=== PATIENT | female | born 1995 | race Caucasian/White ===

== ENCOUNTER 2018-10-07 10:04 | Emergency (ER) | payer OTHER ==
[~2018-10-07] VITALS: Ht 152.4 cm; Wt 60.6 kg
[~2018-10-07 10:04] MED LIST: NAPR-985 PO; NITR-58 PO
[2018-10-07 10:08] VITALS: Ht 152.4 cm; Wt 60.6 kg
[2018-10-07] MEDS ORDERED: LORAZEPAM 1 MG TAB PO ONE (11:00)
--- NOTE | 2018-10-07 11:33 | ERD ---
ER Documentation Chief Complaint Chief Complaint SHOULDER PAIN, LEFT EYE PAIN X3 MONTHS HPI 23-year-old female who is here with multiple complaints. She is complaining of having left-sided shoulder pain for about 1 week. She denies any injury or trauma. No numbness or tingling however she does states she has occasional paresthesias in her lips and also notices that she has occasional twitching of her left eye. She also states she has had a week of dysuria and increased urinary frequency. No hematuria. No nausea or vomiting. Does not think she is . ROS All systems reviewed and are negative except as per history of present illness. Medications Home Meds Active Scripts Naproxen* (Naprosyn*) 500 Mg Tablet, 500 MG PO BID PRN for PAIN AND/OR INFLAMMATION, #30 TAB Prov:KURT MACIEL PA-C 10/07/18 Nitrofurantoin Monohyd Macrocr* (Macrobid*) 100 Mg Capsr, 100 MG PO BID for 7 Days, CAP Prov:KURT MACIEL PA-C 10/07/18 Allergies Allergies: Coded Allergies: No Known Allergy (Unverified , 10/07/18) PMhx/Soc Medical and Surgical Hx: pt denies Surgical Hx Hx Miscellaneous Medical Probl: Yes (HX misccariage) Hx Alcohol Use: No Hx Substance Use: No Hx Tobacco Use: No Smoking Status: Never smoker FmHx Family History: No diabetes Physical Exam Vitals Vital Signs Date Temp Pulse Resp B/P (MAP) Pulse Ox O2 O2 Flow FiO2 Time Delivery Rate 10/07/18 97.6 98 17 125/70 99 10:08 (88) Physical Exam INITIAL VITAL SIGNS: Reviewed by me GENERAL: Awake, alert and oriented x 4, well appearing, nontoxic, speaking in full sentences. No acute distress HEAD: Atraumatic NECK: Supple. No masses. Full range of motion. No meningismus. No midline tenderness. RESPIRATORY: Clear to auscultation bilaterally. Symmetric chest wall rise. No w heezing or rales. No accessory muscle use. CV: Regular rate and rhythm. No murmurs, rubs, or gallops. ABDOMEN: Soft, non-distended. Nontender. Negative [place]. Negative McBurneys point tenderness. No CVA tenderness bilaterally. No guarding. No rebound. EXTREMITIES: No clubbing or cyanosis. No edema. Moving all extremities normally. BACK: No midline tenderness to palpation. No step-offs. NEUROLOGIC: Normal mental status and speech. Face is symmetric. Moves all extremities equally. Motor and sensory distally intact. Normal coordination. Ambulates with a strong steady gait. Results 24 hrs Laboratory Tests Test 10/07/18 11:05 10/07/18 11:07 10/07/18 11:17 Urine Color STRAW Urine Clarity CLEAR Urine pH 6.0 Urine Specific [place] 1.003 Urine Ketones NEGATIVE mg/dL Urine Nitrite NEGATIVE mg/dL Urine Bilirubin NEGATIVE mg/dL Urine Urobilinogen NEGATIVE mg/dL Urine Leukocyte Esterase NEGATIVE Robert/ul Urine Hemoglobin NEGATIVE mg/dL Urine Glucose NEGATIVE mg/dL Urine Total Protein NEGATIVE mg/dl Bedside Glucose 76 mg/dL POC Beta HCG, Qualitative NEGATIVE Current Medications Medications Dose Sig/Shantanu Start Time Status Last (Trade) Ordered Route PRN Stop Time Admin Dose Reason Admin Lorazepam 1 mg ONCE ONCE 10/07/18 DC 10/07/18 (Ativan) PO 11:00 11:06 10/07/18 11:01 Procedures/MDM This 23-year-old who has multiple complaints. She has nontraumatic left shoulder pain. Also complaining of twitching in her left eye. As well as dysuria. Urine is normal but I will send it for culture because she is symptomatic with dysuria and frequency of treat her with Macrobid. She was given naproxen for her shoulder pain. Her visual acuity is normal. Given follow[facility]up at [facility]. She is neurovascularly intact and neurologically intact. Patient counseled regarding my diagnostic impression and care plan. Prior to discharge all questions answered. Pt agrees with treatment plan and understands strict return precautions. Pt is instructed to follow up with primary care provider within 24-48 hours. Precautionary instructions provided including instructions to return to the ER if not improving or for any worsening or changing symptoms or concerns. Departure Diagnosis: Primary Impression: Eye problem Additional Impressions: Shoulder pain Dysuria Condition: Stable Patient Instructions: Dysuria, Shoulder Pain (Uncertain Cause) Referrals: [facility] Hours: Mon - Fri 9:00 AM - 5:00 PM Additional Instructions: Call your primary care doctor TOMORROW for an appointment during the next 1-2 days.See the doctor sooner or return here if your condition worsens before your appointment time. KURT MACIEL PA-C Oct 07, 2018 11:33
[2018-10-07 11:47] VITALS: BP 118/68; PULSE 77; RESP 16
== END 2018-10-07 11:48 | disposition home or self-care (01) ==
LOC: FTE 10:04
DX: H57.9 Unspecified disorder of eye and adnexa (principal); R30.0 Dysuria; M25.512 Pain in left shoulder
CPT/HCPCS: 81003; 81025; 82962; 93005

== ENCOUNTER 2018-12-23 19:29 | Emergency (ER) | payer OTHER ==
[~2018-12-23] VITALS: Ht 152.4 cm; Wt 57.0 kg
[~2018-12-23 19:29] MED LIST changes: +CEPH500C ORAL; +DOXY1TAB3 PO; +METO10TA3 ORAL; +METO10TA92 PO; +ONDA8TAB14 PO; +PROM25TA14 PR
[2018-12-23 19:47] VITALS: Ht 152.4 cm; Wt 57.0 kg
[2018-12-23] MEDS ORDERED: SOD CHLORIDE 0.9% 1,000 ML IV STA (20:32)
[2018-12-23] MEDS ORDERED: ONDANSETRON 4 MG INJ IV STA (20:32)
[2018-12-23] MEDS: DEXTROSE 5%-0.9% NACL 1,000 ML IV SCH ×2 (21:14→21:26)
[2018-12-23 23:46] VITALS: BP 98/60; PULSE 57; RESP 19
== END 2018-12-23 23:59 | disposition home or self-care (01) ==
LOC: E/R 19:29
DX: O21.0 Mild hyperemesis gravidarum (principal); Z3A.10 10 weeks gestation of pregnancy
CPT/HCPCS: 36415; 76801; 80053; 81001; 84702; 85025; 96374; 99285; J2405; J7030; J7042